=== PATIENT | female | born 1965 | race Two or more races ===

== ENCOUNTER 2020-10-29 13:05 | Emergency (ER) | payer OTHER ==
[~2020-10-29] VITALS: Ht 165.1 cm; Wt 71.2 kg
[2020-10-29] MEDS ORDERED: ZOCOR20 MG PO (13:24)
== END 2020-10-29 17:05 | disposition home or self-care (01) ==
LOC: ER 13:05
DX: U07.1 COVID-19 (principal)

== ENCOUNTER 2021-02-20 12:21 | Emergency (ER) | payer OTHER ==
[~2021-02-20] VITALS: Ht 160 cm; Wt 58.1 kg
[~2021-02-20 12:21] MED LIST: ZOCOR20 MG PO
[2021-02-20] MEDS ORDERED: PNEU16DI2 IJ (13:09)
[2021-02-20] MEDS ORDERED: SIMVASTATIN5 MG PO (13:10)
[2021-02-20] MEDS ORDERED: SYNTHROID50 MCG PO (13:10)
== END 2021-02-20 15:33 | disposition home or self-care (01) ==
LOC: ER 12:21
DX: M54.5 Low back pain (principal)

== ENCOUNTER 2024-01-20 08:37 | Emergency (ER) | payer OTHER ==
[~2024-01-20] VITALS: Ht 160 cm; Wt 61.2 kg
[~2024-01-20 08:37] MED LIST changes: +PNEU16DI2 IJ; +SIMVASTATIN5 MG PO; +SYNTHROID50 MCG PO
[2024-01-20] MEDS ORDERED: DEXAMETHASONE SODIUM PHOSPHATE 4 MG/ML VIAL IM ONE (14:15)
[2024-01-20] MEDS ORDERED: CEFTRIAXONE SODIUM 1,000 MG VIAL IM ONE (14:15)
== END 2024-01-20 14:31 ==
LOC: ER 08:37
DX: S02.40DA Maxillary fracture, left side, initial encounter for closed fracture (principal); W18.39XA Other fall on same level, initial encounter; Y93.89 Activity, other specified; Y92.018 Other place in single-family (private) house as the place of occurrence of the external cause; E03.9 Hypothyroidism, unspecified; G43.909 Migraine, unspecified, not intractable, without status migrainosus; E78.49 Other hyperlipidemia
CPT/HCPCS: 70486; 96372; 99284; J0696; J1100

== ENCOUNTER 2024-12-09 11:38 | Emergency (ER) | payer OTHER ==
[~2024-12-09] VITALS: Ht 160 cm; Wt 53.5 kg
[2024-12-09] MEDS ORDERED: KETOROLAC TROMETHAMINE 30 MG VIAL IM STA (14:00)
[2024-12-09] MEDS ORDERED: KETOROLAC TROMETHAMINE 30 MG VIAL ONE (14:05)
[2024-12-09 14:17] LABS: HEMATOCRIT 37.4 % (36.0-45.00); HEMOGLOBIN 12.5 g/dL (12.0-15.00); MEAN CELL VOLUME 94.5 fL (80.00-100.00); MEAN CORPUSCULAR HEMOGLOBIN 31.5 pg (27.00-32.0); MEAN CORPUSCULAR HGB CONC 33.4 g/dl (32.0-36.0); PLATELET COUNT 319 K/uL (150-450); RED BLOOD COUNT 3.95 M/uL (4.00-6.00); RED CELL DISTRIBUTION WIDTH 12.8 % (11.5-14.5)
[2024-12-09 15:31] LABS: PH,URINE 6.5 (5.0-8.0); URINE APPEARANCE Cloudy; URINE BILIRRUBIN Negative (NEGATIVE); URINE BLOOD Negative; URINE COLOR Yellow; URINE GLUCOSE Negative (NEGATIVE); URINE KETONE Negative (NEGATIVE); URINE LEUKOCYTE Moderate; URINE NITRATE Positive; URINE PROTEIN Negative (NEGATIVE)
[2024-12-09 15:35] LABS: URINE EPITHELIAL CELLS 60.6 uL (0.0-38.8); URINE RBC 2.2 uL (0.0-20.8); URINE WBC 260.2 uL (0.0-23.2)
[2024-12-09 16:43] LABS: URINE BACTERIA > 9821.5 uL (0.0-1933)
[2024-12-09] MEDS ORDERED: TAMS0.4C PO (16:47)
[2024-12-09] MEDS ORDERED: PEPCID AC20 MG PO (16:47)
[2024-12-09] MEDS ORDERED: BACTRIM DS TAB1 EACH PO (16:47)
== END 2024-12-09 19:48 | disposition home or self-care (01) ==
LOC: ER 11:38
PROVIDERS: Emergency Medicine
DX: N39.0 Urinary tract infection, site not specified (principal); E03.8 Other specified hypothyroidism

== ENCOUNTER 2025-10-20 20:44 | Emergency (ER) | payer OTHER ==
[~2025-10-20] VITALS: Ht 160 cm; Wt 59.0 kg
[~2025-10-20 20:44] MED LIST changes: +BACTRIM DS TAB1 EACH PO; +PEPCID AC20 MG PO; +TAMS0.4C PO
[2025-10-20] MEDS ORDERED: 0.9 % SODIUM CHLORIDE 1,000 ML IV STA (22:49)
[2025-10-20] MEDS ORDERED: FAMOTIDINE/PF 20 MG/2 ML VIAL IV STA (22:49)
[2025-10-20] MEDS ORDERED: ONDANSETRON HCL 2 MG/ML VIAL IV STA (22:50)
[2025-10-20] MEDS ORDERED: ONDANSETRON HCL 2 MG/ML VIAL ONE (23:22)
[2025-10-20] MEDS ORDERED: FAMOTIDINE/PF 20 MG/2 ML VIAL ONE (23:22)
[2025-10-21 00:58] LABS: BASO % 0.2 % (0.1-1.2); EOS # 0.04 (0.04-0.54); EOS % 0.8 % (0.7-7.0); LYMPH # 0.93 (1.18-3.74); LYMPH % 18.3 % (19.3-53.1); MEAN PLATELET VOLUME 11.80 fl (9.4-12.4); MONO # 0.52 (0.24-0.82); MONO % 10.2 % (4.7-12.5); NEUT # 3.57 (1.56-6.13); NEUT % 70.3 % (34.0-71.1); RED CELL DISTRIBUTION WIDTH 12.5 % (11.6-14.4)
[2025-10-21 01:02] LABS: ERYTHROCYTE SEDIMENTATION RATE 43 mm/hr (0-30)
[2025-10-21 01:19] LABS: INR 0.97
[2025-10-21 01:26] LABS: ALT/SGPT 26.0 U/L (12-78); AST/SGOT 23.0 U/L (15-37); BILIRUBIN TOTAL 0.47 mg/dL (0.3-1.2); BUN CREA RATIO 15.0 (7.0-25.0); CREATININE SERUM 0.65 mg/dL (0.55-1.02); GFR 93.29; GLOBULINA 4.7 G/DL (2.4-3.5); GLUCOSE FASTING 99.0 mg/dL (65-100); OSMOLALITY SERUM 277.0 MOSM/KG (275-295)
[2025-10-21 01:44] LABS: URINE APPEARANCE Clear; URINE BILIRRUBIN Negative (NEGATIVE); URINE COLOR Yellow; URINE GLUCOSE Negative (NEGATIVE); URINE KETONE Negative (NEGATIVE); URINE LEUKOCYTE Trace; URINE NITRATE Positive; URINE PROTEIN Negative (NEGATIVE); URINE UROBILINOGEN 1.0 E.U./dl
[2025-10-21 01:51] LABS: URINE EPITHELIAL CELLS 17.4 uL (0.0-38.8); URINE RBC 18.1 uL (0.0-20.8); URINE WBC 46.7 uL (0.0-23.2)
[2025-10-21 01:55] LABS: URINE BACTERIA > 9821.5 uL (0.0-1933); URINE CAST 0.00 uL (0.0-1.40)
[2025-10-21 01:56] LABS: URINE BLOOD Trace
[2025-10-21] MEDS ORDERED: CEFTRIAXONE SODIUM 1,000 MG VIAL IV ONE (03:00)
[2025-10-21] MEDS ORDERED: LEVSIN/SL0.125 MG SL (03:30)
[2025-10-21] MEDS ORDERED: METRONIDAZOLE500 MG PO (03:30)
[2025-10-21] MEDS ORDERED: PROBIOTIC1 EAC2 PO (03:30)
[2025-10-21] MEDS ORDERED: CIPRO500 MG PO (03:30)
[2025-10-21] MEDS ORDERED: CEFTRIAXONE SODIUM 1,000 MG VIAL ONE (03:33)
== END 2025-10-21 04:04 | disposition home or self-care (01) ==
LOC: ER 20:45
PROVIDERS: Physician Assistant Medical
DX: R10.9 Unspecified abdominal pain (principal); R11.11 Vomiting without nausea; R11.0 Nausea; I10 Essential (primary) hypertension; E03.8 Other specified hypothyroidism
CPT/HCPCS: 36415; 74177; Q9965